=== PATIENT | male | born 1935 | race Caucasian/White ===

== ENCOUNTER 2018-01-19 13:44 | Observation (INO) ==
--- NOTE | 2018-01-19 07:06 | History & Physical Report ---
Date of Encounter: 01/19/18 Time of Encounter: 18:58 24 Hour HP Update - Instructions Instructions: If the History and Physical is less than 30 days old and was completed prior to A.M. admission and or procedure and has NOT been updated on calendar day of procedure please complete this update prior to performing procedure. - Update Patient reports changes in Medical Condition: No Changes in examination, assessment, or condition: No Changes in Medication: No Preop tests/diagnostics Reviewed: Yes Pre-Op MRSA Screen: Negative Surgery Remains Indicated: Yes Consent for Planned Operative Procedure(s) Verified: Yes
--- NOTE | 2018-01-19 07:43 | Pain Management Procedure Note ---
Date of procedure: 01/19/18 Procedure: PHYSICIAN: DR. HARDY PREOPERATIVE DIAGNOSIS: Spinal Stenosis with Neurogenic Intermittent Claudication POSTOPERATIVE DIAGNOSIS: Same OPERATIVE PROCEDURE: Placement of 8 mm Indirect Decompression System (Superion) at L4/L5 COMPLICATIONS: None ANESTHESIA: General Anesthesia SAFETY INFORMATION: Before entering the operating room, we verified the following information with the patient: 1. The patient denies taking oral anticoagulants. 2. The patient denies recently being given injectable anticoagulants. 3. The patient denies recent hospital, Emergency Department, or inpatient rehabilitation admission. 4. The patient denies use of herbal medications, in particular garlic, ginkgo, and ginseng. 5. The patient denies recent infection or use of antibiotics. Surgical Procedure: The patient suffers from buttock and leg pain and heaviness which significantly improve with sitting or leaning forward. Advanced imaging shows correlation of the symptoms to spinal stenosis. The discomfort causes difficulty with normal daily activity like walking in the home, standing to work in the kitchen, and cleaning the home. These symptoms have been present for over six months and have not responded to typical conservative care as documented in my clinic notes. The patient was brought into the operating room. A timeout procedure was performed to ensure we had the correct patient for the correct procedure. General anesthesia was induced. We positioned the patient onto the operating room table in the prone position. We used pillows to orient the lumbar spine into a flexed position. All other upper and lower limb pressure points were padded. Once the patient was in adequate position, anesthetic drug administration was initiated. The skin of the entire lower back from flank to flank was prepared with chlorohexidine and allowed to dry for three minutes before four surgical towels were used to define a surgical window on the lumbar area. A full body surgical drape was placed over the patient. A sterile fluoroscopy drape was placed on the fluoroscopic unit, and the machine was introduced into the sterile field. An AP view was obtained of the lumbar spine and the proper segment was identified. I placed a linda on the skin overlying the superior border of the inferior spinous process. I tamiko a vertical line on the patients skin to contain the first linda. The entire incision was 1.5 cm long. I infiltrated the skin and subcutaneous tissues with 15 ml of 0.5% bupivacaine with epinephrine via a 1.5 inch 25 gauge needle. I then used a 15 blade to open the skin. A sponge stick was used to hold the scalpel deeper in the wound while an AP view was obtained. I used the AP view to align the scalpel parallel to spinous process in the sagittal plane. A vertical incision in the supraspinous ligament was then done while watching the scalpel depth on lateral view to ensure the blade was not near the central canal. The first dilator was positioned in AP view while being held with a sponge stick. I used cephalad and caudal tilts of the first dilator to make sure the superior and inferior curvilinear edges of the tip of the dilator were aligned with the spinous processes. I then tapped the dilator through supraspinous ligament with a mallet while watching the tip position on intermittent lateral views. The first dilator was advanced to the spino-laminar junction as seen on intermittent lateral views. The second dilator and cannula assembly were now placed over the first and tapped with the mallet to advance down to the posterior lamina. Intermittent fluoroscopic views were used here to monitor the progress of the second dilator. With each tap, the first dilator moved backward; I was able to push the first dilator forward with my finger to keep the tip of the first dilator parked at the posterior edge of the lamina. The tip of the cannula and the tip of the second dilator were monitored carefully with intermittent lateral fluoroscopic views. The cannula tip came to rest just past the apex of the inferior shey projection on the cephalad spinous process. The second dilator tip came to rest just short of the first dilator tip. The second dilator was now removed leaving only the working cannula in place. A reaming tool was inserted, and soft tissue was debrided. Lateral views were again used to protect the central canal. The reaming tool was kept posterior to the back edge of the lamina. The reaming tool was then removed. A sizing device was placed into the newly created void to measure the interspinous space. The appropriately sized implant was then loaded onto an insertion tool with route delivery driver. This assembly was now passed through the working cannula until the black line on the insertion tool aligned with the proximal end of the working cannula. Intermittent lateral fluoroscopic views were used to monitor the implant as it was positioned in the interspinous space. The working cannula and the implant itself were adjusted in terms of depth so that the implant could deploy without encountering laminar bone. Once I was satisfied that the implant was in acceptable position within the interspinous space, I began to turn the route delivery driver which caused the implant to open. Gentle sagittal plane tilting was used to intermittently break through soft tissue as the implant was opened. Intermittent lateral views were used to observe the implant as it was opened. We were able to observe symmetrical opening without resistance. At this point, the implant was fully deployed, and the route delivery driver tool was removed. AP view showed the cephalad and caudal prongs of the implant in proper position on each spinous process. I then used a mallet and intermittent fluoroscopic views to tap the implant anteriorly so that it came to a final resting position on the back side of laminar bone and ligamentum flavum. Final AP and lateral radiographs were taken. The wound was now closed with 0-0 barbed suture to approximate the deeper tissue layer. A continuous suture was used. The subcuticular layer was then closed with continuous 2-0 barbed suture. A zipline device was then placed to approximate the skin edges. A tegaderm bandage was then placed. The patient was allowed to emerge from anesthesia before being transported to the recovery area. The patient tolerated the procedure well. We will follow up with the patient over the next 6 weeks. Was there an veterinary technician assistant present: No Estimated blood loss (cc): 0 Specimen: 0
--- NOTE | 2018-01-19 07:43 | Discharge Summary ---
Outpatient Proc Discharge Plan - Plan Additional Instructions: Call my office if you have any questions or problems. IMPORTANT DO NOT TAKE ANY MEDICATIONS CONTAINING ASPIRIN OR NSAID (NON-STEROIDAL ANTI- INFLAMMATORY DRUGS) FOR AT LEAST 24 HOURS AFTER YOUR SURGERY. DO NOT TAKE ANY BLOOD THINNING DRUGS FOR AT LEAST 24 HOURS AFTER YOUR SURGERY. IMPORTANT It is normal to have soreness where the implant was placed. If you notice swelling, redness, or drainage from the site, call me. If you have fever, chills, or a general feeling of being sick, call me. If you notice numbness or weakness in your limbs or difficulty passing urine, call me. Do not submerge the incisions in water before they are totally healed. You can shower 24 hours after surgery. Simply leave the plastic bandage on your back in the shower. Do not remove the bandage. Try to keep the site dry even in the shower. We will remove the bandages in 2 weeks in the office.
[2018-01-19] MEDS ORDERED: CeFAZolin Syr 2,000MG/20 ML 2,000 MG/20 ML SYRINGE IVPB ONE (14:41)
[2018-01-19] MEDS ORDERED: Ringers Solution, Lactated 1,000 ML IVC SCH (14:45)
--- NOTE | 2018-01-19 15:10 | Anesthesia Evaluation PreOp ---
Date of Encounter: 01/19/18 Time of Encounter: 15:08 - Past History Planned Operation: Placement L4-5 interspinous indirect spine decom device Cardiac History: HTN Pulmonary History: Smoker, АЛЕКСАНДР Dx (does not use CPAP) GAMING DEALER History: Other (lumbar stenosis with neurogenic intermittent claudication) Other Medical History: Denies Any Significant HX Anesthesia History: No Prior Anesthetic Complications, Past Anesthesia ( pyrolomyotomy, hand surgery) Alcohol Use: none Drug use: none Medications and Allergies Amlodipine Besylate 5 mg PO DAILY 01/19/18 [History] Aspirin [Lo-Dose Aspirin EC] 81 mg PO DAILY 01/19/18 [History] Cyanocobalamin (Vitamin B-12) [Vitamin B-12] 1,000 mcg SL DAILY 01/19/18 [ History] Folic Acid 1 mg PO DAILY 01/19/18 [History] 3 Allergy/AdvReac Type Severity Reaction Status Date / Time No Known Allergies Allergy Verified 01/12/18 13:55 - Meds/Allergy Pre-op Review Medications Reviewed: Yes Allergies Reviewed: Yes Beta Blockers on Current Med List: No Anesthesia Results - Imaging EKG: report reviewed (SINUS RHYTHM RIGHT BUNDLE BRANCH BLOCK Electronically Signed On 01-15-2018 17:18:29 EDT by Alistair Bird) Anesthesia Exam O2 Sat Height 1.73 m Height 1.73 m Weight 62.596 kg Weight 62.596 kg O2 Sat by Pulse Oximetry 96 Vital Signs Temp Pulse Resp BP Pulse Ox 97.8 F 79 18 138/80 96 01/19/18 14:43 01/19/18 14:43 01/19/18 14:43 01/19/18 14:43 01/19/18 14:43 Weight: 62kg - HEENT Pupil (Motor): Pupils equal, EOMI Mallampati: III Teeth: Prosthesis Denture Type: Upper: Partial Oral Opening: Greater than 3 - GAMING DEALER LOC: Oriented GAMING DEALER Motor: Normal RUE, Normal LUE, Normal RLE, Normal LLE, Normal Face GAMING DEALER Sensory: Normal: RUE, LUE, RLE, LLE, Face - Cardiac Rhythm: Regular - Pulmonary Breath Sounds: bilateral Clear Respiratory Effort: Symmetrical Anesthesia Assess/Plan ASA Score: 3 Modified Onur Scale for Level of Consciousness: Cooperative, oriented, and tranquil Anesthetic Plan: General Monitoring Plan: Standard Monitors Recovery Plan: PACU
[2018-01-19] MEDS ORDERED: *HR* FentaNYL (PF) 100 MCG/2 ML VIAL ONE ×2 (17:46→19:30)
[2018-01-19] MEDS ORDERED: *HR* Propofol 200 MG/20 ML VIAL IVP ONE (17:46)
[2018-01-19] MEDS ORDERED: Ondansetron 4 MG/2 ML VIAL ONE (17:47)
[2018-01-19] MEDS ORDERED: Dexamethasone 4 MG/ML VIAL ONE (17:47)
[2018-01-19] MEDS ORDERED: Lidocaine -MPF 2% 2 ML VIAL ONE (17:47)
[2018-01-19] MEDS ORDERED: *HR* Succinylcholine 200 MG/10 ML VIAL IVP ONE (17:47)
[2018-01-19] MEDS ORDERED: Bupivacaine/EPI 1:200k 0.25%PF 10 ML VIAL INFILT ONE (18:30)
[2018-01-19] MEDS ORDERED: Lidocaine -MPF 4% 5 ML AMPUL ONE (18:32)
[2018-01-19] MEDS ORDERED: Acetaminophen IV 1,000 MG/100 ML INFUS..BTL ONE (18:43)
[2018-01-19] MEDS ORDERED: EPHEDrine 50 MG/ML VIAL ONE (19:22)
[2018-01-19] MEDS ORDERED: *HR* PHENYLEPHRINE 1,000 MCG/10 ML SYRINGE IVP ONE (19:36)
[2018-01-19] MEDS ORDERED: Ondansetron 4 MG/2 ML VIAL IVP ONE (20:27)
[2018-01-19] MEDS ORDERED: *HR* Morphine 2 MG/ML SYRINGE IVP PRN (20:27)
[2018-01-19 22:16] VITALS: BP 117/61
--- NOTE | 2018-01-19 22:37 | Anesthesia Evaluation Post Op ---
Date of Encounter: 01/19/18 Time of Encounter: 21:20 - Vital Signs Vital Signs: Vital Signs/O2 Sat/Glucose, Most Current Temp Pulse Resp BP Pulse Ox 01/19/18 22:15 97.0 F L 84 18 117/61 94 01/19/18 22:00 96.6 F L 83 18 124/79 93 01/19/18 21:20 98.6 F 81 16 132/75 95 01/19/18 21:10 95 16 127/73 95 01/19/18 21:00 83 16 123/76 93 01/19/18 20:50 98.6 F 75 16 128/78 99 - Lungs Lungs: Clear Ascult./Percussion - Airway Airway: Non-obstructed - Cardiovascular Regular Rate - Mental Status Mental Status: Alert & Oriented, Answers Appropriately - Pain Pain Scale: 0 - Nausea Vomiting Nausea Vomiting: Not Present - Hydration Hydration: Ice chips - Discharge PostOp Status: Transfer Patient to floor
== END 2018-01-19 22:35 | disposition home or self-care (01) ==
LOC: SAMDAY 13:44 → 3NENU 13:44
PROVIDERS: ADMIT Student in an Organized Health Care Education/Training Program; ATTEND Student in an Organized Health Care Education/Training Program